=== PATIENT | female | born 1965 | race Caucasian/White ===

== ENCOUNTER → 2018-08-15 15:03 | Outpatient (CLI) | payer OTHER, MEDICAID, SELFPAY ==
--- NOTE | 2018-08-15 | DI.CT.S_ITS ---
PROCEDURE: CT CHEST WO CON INDICATIONS: SHORTNESS OF BREATH TECHNIQUE: Noncontrast 5 mm thick sections acquired from the pulmonary apices to the posterior costophrenic angles. 7 mm thick coronal and sagittal MIP reformats were then acquired. For radiation dose reduction, the following was used: automated exposure control, adjustment of mA and/or kV according to patient size. COMPARISON: Located [facility], , CHEST 2 VIEW, 08/19/2016, 15:09. [facility], CHEST 2 VIEW, 05/03/2017, 12:27. FINDINGS: Image quality: Excellent. Lungs and pleura: No acute consolidation although bibasilar dependent atelectasis is present. A pair of 4 mm right-sided pulmonary nodules are seen on image 24 series 3 in the right upper lobe, indeterminate. No pleural effusions or pneumothorax. Central and peripheral airways are patent and normal in caliber. Mediastinum: There is cardiomegaly, mild. No pericardial effusion. No mediastinal adenopathy by size criteria. Thoracic aorta and central pulmonary arteries are normal in size. Esophagus is normal in caliber. No hiatal hernia. Bones and chest wall: No suspicious bony lesions. No vertebral body compression fractures. No axillary or supraclavicular adenopathy by size criteria. Abdomen: Hepatic steatosis noted. Gallbladder surgically absent. Incidental colonic diverticula. IMPRESSION: Multiple 4 mm right-sided pulmonary nodules, technically indeterminate and cannot exclude early metastatic or malignant possibilities therefore recommend followup noncontrast chest CT in 6 months. No acute consolidation. Dependent bibasilar scattered atelectasis. Hepatic steatosis. Dictated by: Jeff Mott M.D. on 08/15/2018 at 15:46 Approved by: Jeff Mott M.D. on 08/15/2018 at 15:51
== END ==
PROVIDERS: Visit Provider Internal Medicine Critical Care Medicine
DX: R06.02 Shortness of breath (principal); R91.8 Other nonspecific abnormal finding of lung field; J98.11 Atelectasis; K76.0 Fatty (change of) liver, not elsewhere classified; I51.7 Cardiomegaly; K57.30 Diverticulosis of large intestine without perforation or abscess without bleeding; Z90.49 Acquired absence of other specified parts of digestive tract
CPT/HCPCS: 71250

== ENCOUNTER → 2018-11-21 09:36 | Outpatient (CLI) | payer OTHER, MEDICAID, SELFPAY ==
--- NOTE | 2018-11-21 | DI.CT.S_ITS ---
PROCEDURE: CT CHEST WO CON INDICATIONS: Other nonspecific abnormal finding of lung field TECHNIQUE: Noncontrast 5 mm thick sections acquired from the pulmonary apices to the posterior costophrenic angles. 1 mm lung window, 5 mm thick coronal and sagittal and 7 mm axial MIP reformats were then acquired. For radiation dose reduction, the following was used: automated exposure control, adjustment of mA and/or kV according to patient size. COMPARISON: [facility], CT, CT CHEST WO CON, 08/15/2018, 15:15. FINDINGS: Image quality: Excellent. Lungs and pleura: The 5 mm right midlung perifissural right lower lobe lung nodule demonstrates a broad-based connection to the major fissure pleural surface (series 3 image 147). Slightly more cranial, a subpleural solid 4 mm right middle lobe lung nodule demonstrates a tiny tagged to the pleural surface. Linear subpleural scarring seen in the right upper lobe laterally, stable (series 3 image 65). There is groundglass opacity posterior medial in the right lower lung and posteriorly in the left lower lung. No dense consolidations. No pleural effusions or pneumothorax. Central and peripheral airways are patent and normal in caliber. Mediastinum: Heart size is normal. No pericardial effusion. No mediastinal adenopathy by size criteria. Thoracic aorta and central pulmonary arteries are normal in size. Esophagus is normal in caliber. No hiatal hernia. Bones and chest wall: No suspicious bony lesions. No vertebral body compression fractures. No axillary or supraclavicular adenopathy by size criteria. The thyroid gland is not seen. Abdomen: Visualized upper abdomen demonstrates mild hepatomegaly and moderate hepatic steatosis, cholecystectomy change, 2.9 cm left adrenal adenoma with punctate wall calcification, stable. IMPRESSION: 1. 2 stable right middle and lower lobe lung nodules. Although there is been no significant change, 2 years of surveillance is recommended to establish benignity. Followup chest CT in 6-9 months is recommended. 2. Minor right medial and left posterior lower lobe groundglass opacities demonstrate interval improvement compared to the prior study. This may be residual parenchymal edema, infection, or aspiration. 3. Hepatomegaly and hepatic steatosis. 4. 2.9 cm left adrenal adenoma. Dictated by: Mandi Chen M.D. on 11/21/2018 at 18:31 Approved by: Mandi Chen M.D. on 11/21/2018 at 18:43
== END ==
PROVIDERS: PCP Family Medicine; Visit Provider Internal Medicine Critical Care Medicine
DX: R91.8 Other nonspecific abnormal finding of lung field (principal); R16.0 Hepatomegaly, not elsewhere classified; K76.0 Fatty (change of) liver, not elsewhere classified; D35.00 Benign neoplasm of unspecified adrenal gland
CPT/HCPCS: 71250

== ENCOUNTER → 2019-12-16 09:29 | Outpatient (CLI) | payer OTHER, MEDICAID, SELFPAY ==
--- NOTE | 2019-12-16 09:36 | DI.CT.S_ITS ---
PROCEDURE: CT CHEST WO CON INDICATIONS: CHRONIC COUGH TECHNIQUE: Noncontrast 2.0-2.5 mm thick sections acquired from the pulmonary apices to the posterior costophrenic angles. 7 mm thick axial MIP and 5 mm coronal and sagittal reformats were then acquired. A low radiation dose technique was utilized. COMPARISON: [facility], CT, CT CHEST WO CON, 08/15/2018, 15:15. [facility], CT, CT CHEST WO CON, 11/21/2018, 9:55. FINDINGS: Image quality: Diagnostic, given the low radiation dose technique. Lungs and pleura: A few small pulmonary nodules. For example: -right middle lobe subpleural 5 mm, (4/151), unchanged since 11/21/2018. -right lower lobe juxta fissural a 5 mm, (4/172), unchanged. No new or enlarging pulmonary nodules. No mass. No acute airspace opacity. Airways are clear. No pleural effusion. No pneumothorax. Mediastinum: Heart size is normal. No pericardial effusion. No mediastinal adenopathy by size criteria. Thoracic aorta and central pulmonary arteries are normal in size. Esophagus is normal in caliber. No hiatal hernia. Bones and chest wall: No suspicious bony lesions. No vertebral body compression fractures. No axillary or supraclavicular adenopathy by size criteria. Thyroid gland is unremarkable. Abdomen: Hepatic steatosis. Post cholecystectomy. Left adrenal nodule measuring a 3 cm and average -8 Hounsfield units, (3/53), previously 2.8 cm. Punctate calcification. This is most compatible with a benign adenoma. IMPRESSION: 1. Stable small pulmonary nodules in the right lung measuring 5 mm since 2019. -if high risk this can be followed up in 12 months to demonstrate 2 year stability. 2. No new or enlarging pulmonary nodules. 3. Hepatic steatosis. 4. Similar left adrenal nodule most compatible with a benign adenoma. Dictated by: Choco Aguayo M.D. on 12/16/2019 at 10:30 Approved by: Choco Aguayo M.D. on 12/16/2019 at 10:44
== END ==
PROVIDERS: PCP Family Medicine; Referring Provider Family Medicine; Visit Provider Internal Medicine Rheumatology
DX: R05 Cough (principal); R91.8 Other nonspecific abnormal finding of lung field; E27.9 Disorder of adrenal gland, unspecified; K76.0 Fatty (change of) liver, not elsewhere classified; Z90.49 Acquired absence of other specified parts of digestive tract
CPT/HCPCS: 71250